=== PATIENT | male | born 1975 | race American Indian/Alaskan Native ===

== ENCOUNTER 2016-06-04 09:48 | Emergency (ER) | payer OTHER ==
[2016-06-04 10:25] LABS: Basophils % (Auto) 0.5 % (0.0-1.8); Eosinophils % (Auto) 1.9 % (0.0-4.3); Hematocrit 44.5 % (35.5-45.6); Hemoglobin 14.7 gm/dl (11.8-15.2); Mean Corpuscular HGB Conc 33 % (32-34); Mean Corpuscular Hemoglobin 29 pg (28-32); Mean Corpuscular Volume 87 fl (84-94); Platelet Count 380 K/mm3 (140-440); Red Blood Count 5.11 M/mm3 (3.65-5.03); Red Cell Distribution Width 12.9 % (13.2-15.2); White Blood Count 12.6 K/mm3 (4.5-11.0)
[2016-06-04 10:46] LABS: Anion Gap 22 mmol/L; BUN/Creatinine Ratio 13.63; Blood Urea Nitrogen 15 mg/dL (9-20); Calcium 9.5 mg/dL (8.4-10.2); Carbon Dioxide 23 mmol/L (22-30); Chloride 94.9 mmol/L (98-107); Glucose 84 mg/dL (75-100); Potassium 4.4 mmol/L (3.6-5.0); Sodium 135 mmol/L (137-145)
[2016-06-04 14:50] VITALS: BP 127/81
--- NOTE | 2016-06-04 17:13 | Emergency Department Report ---
ED Chest Pain HPI - General Chief Complaint: Chest Pain Stated Complaint: CHEST PAIN Time Seen by Provider: 06/04/16 16:35 Source: patient Mode of arrival: Ambulatory Limitations: No Limitations - History of Present Illness MD Complaint: chest pain -: Gradual, minutes(s) (2) Onset: during rest Pain Location: left chest Pain Radiation: none Severity: mild Severity scale (0 -10): 0 Quality: aching Consistency: intermittent Improves With: nothing Worsens With: nothing re: denies: nausea, vomting, diaphoresis, dyspnea, sense of impending doom Other Symptoms: denies: cough, fever, syncope, rash, acid taste in mouth, leg swelling, palpitations, burping, other Treatments Prior to Arrival: none - Related Data Previous Rx's Medication Instructions Recorded Last Taken Type ALPRAZolam [Xanax TAB] 1 mg PO BID #10 tab 06/04/16 Unknown Rx Allergies Allergy/AdvReac Type Severity Reaction Status Date / Time No Known Allergies Allergy Unverified 06/04/16 09:56 GIA score - Gia Score Age > 65: (0) No Aspirin use within the Past 7 Days: (0) No 3 or more CAD Risk Factors: (0) No 2 or more Angina events in past 24 hrs: (0) No Known CAD with more than 50% Stenosis: (0) No Elevated Cardiac Markers: (0) No ST Deviation Greater than 0.5mm: (0) No GIA Score: 0 ED Review of Systems ROS: Stated complaint: CHEST PAIN Other details as noted in HPI Comment: All other systems reviewed and negative ED Past Medical Hx - Past Medical History Previous Medical History?: No - Surgical History Past Surgical History?: No - Social History Smoking Status: Never Smoker Substance Use Type: Alcohol - Medications Home Medications: Home Medications Medication Instructions Recorded Confirmed Last Taken Type ALPRAZolam [Xanax TAB] 1 mg PO BID #10 tab 06/04/16 Unknown Rx ED Physical Exam - General Limitations: No Limitations General appearance: alert, in no apparent distress - Head Head exam: Present: atraumatic, normocephalic - Eye Eye exam: Present: normal appearance - ENT ENT exam: Present: mucous membranes moist - Neck Neck exam: Present: normal inspection - Respiratory Respiratory exam: Present: normal lung sounds bilaterally. Absent: respiratory distress - Cardiovascular Cardiovascular Exam: Present: regular rate, normal rhythm. Absent: systolic murmur, diastolic murmur, rubs, gallop - GI/Abdominal GI/Abdominal exam: Present: soft, normal bowel sounds - Rectal Rectal exam: Present: deferred - Extremities Exam Extremities exam: Present: normal inspection - Back Exam Back exam: Present: normal inspection - Neurological Exam Neurological exam: Present: alert, oriented X3 - Psychiatric Psychiatric exam: Present: normal affect, normal mood - Skin Skin exam: Present: warm, dry, intact, normal color. Absent: rash ED Course Vital Signs 06/04/16 06/04/16 06/04/16 09:56 14:41 14:45 Temperature 98.0 F Pulse Rate 100 H 88 100 H Respiratory 18 15 20 Rate Blood Pressure 147/99 Blood Pressure 127/81 [Left] O2 Sat by Pulse 99 100 100 Oximetry 06/04/16 06/04/16 06/04/16 15:00 15:30 16:00 Temperature Pulse Rate 94 H 88 89 Respiratory 11 L 14 12 Rate Blood Pressure Blood Pressure [Left] O2 Sat by Pulse 100 99 99 Oximetry 06/04/16 06/04/16 16:30 17:00 Temperature Pulse Rate 91 H 90 Respiratory 9 L 13 Rate Blood Pressure Blood Pressure [Left] O2 Sat by Pulse 99 98 Oximetry ED Medical Decision Making - Lab Data Result diagrams: 06/04/16 10:16 06/04/16 10:16 Critical care attestation.: If time is entered above; I have spent that time in minutes in the direct care of this critically ill patient, excluding procedure time. ED Disposition Clinical Impression: Chest pain due to psychological stress Disposition: DISCHARGED TO HOME OR SELFCARE Is pt being admited?: No Does the pt Need Aspirin: No Condition: Good Instructions: Chest Pain (ED), Costochondritis (ED) Prescriptions: ALPRAZolam [Xanax TAB] 1 mg PO BID #10 tab Referrals: PRIMARY CARE, [Primary Care Provider] - 3-5 Days Time of Disposition: 17:46
== END 2016-06-04 18:05 | disposition home or self-care (01) ==
LOC: ED 09:48
DX: R07.9 Chest pain, unspecified (principal)
CPT/HCPCS: 36415; 80048; 84484; 85025; 93005; 93010; 99284